=== PATIENT | female | born 1985 | race Caucasian/White ===

== ENCOUNTER → 2016-12-06 | Outpatient (CLI) | payer OTHER ==
[~2016-12-06] MED LIST: ACET50TA PO; COLA50CA3 PO; IBUP80TA PO; prenatal vitamins PO
--- NOTE | 2016-12-06 15:59 | REP ---
LEFT BREAST ULTRASOUND: 12/06/2016. Clinical history: A palpable lump left breast 2 o'clock position for about 2 weeks, not painful, states it is about 3 mm. No prior study. Findings: Sonographic evaluation of the upper outer quadrant of the left breast from 12-o'clock to 3-o'clock position for a reported superficial palpable 3 mm nodule showed heterogeneously dense echogenic breast tissue without a discrete mass, dilated duct, architectural distortion or cyst. Impression: 1. BIRADS ACR category 1 negative. Breast ultrasound without dominant mass, architectural distortion, cyst or dilated duct. Please see mammogram report this date for final assessment/recommendation. Signed by Darryn Schilling MD 12/06/2016 09:23 P
--- NOTE | 2016-12-06 16:34 | REP ---
Diagnostic digital left mammogram 12/06/2016: Clinical history: 2-week history of left breast nodule palpable at 2 o'clock about 3 mm. Family history: Paternal grandmother with breast carcinoma at age 60. Findings: Comparison to the breast ultrasound this date. The breast parenchyma is diffusely heterogeneously dense in this 27-year-old female which may limit the sensitivity of mammography. Markers placed by the patient at the palpable finding and was described by the technologist as being located with some difficulty. Technologist could not feel this lump. There are no dominant masses, areas of architectural distortion, skin thickening, clusters of microcalcification or other secondary signs of malignancy. On the spot magnified views. There is likewise no discrete mass, architectural distortion or other significant finding. The left breast ultrasound showed no underlying cyst, solid mass, architectural distortion or dilated duct. Impression: 1. BIRADS ACR category negative. No evidence of malignancy. No findings mammographically or sonographically. 2. Recommend routine annual followup mammography. This mammogram was interpreted with the aid of an FDA-approved computer-aided detection system. The patient states she had a clinical breast exam in 11/2016. The patient letter being requested is M1, dense. Signed by Darryn Schilling MD 12/06/2016 09:24 P
== END ==
LOC: M RAD 14:46
PROVIDERS: ATTEND Physician Assistant
DX: N63 Unspecified lump in breast (principal)